=== PATIENT | female | born 1995 | race Hispanic/Latino ===

== ENCOUNTER 2021-03-21 11:27 | Emergency (ER) | payer SELFPAY ==
[~2021-03-21] VITALS: Ht 152.4 cm; Wt 63.5 kg
[2021-03-21 11:28] VITALS: BP 122/70
== END 2021-03-21 12:21 | disposition left against medical advice (07) ==
LOC: EDH 11:27
DX: R10.2 Pelvic and perineal pain (principal); Z53.21 Procedure and treatment not carried out due to patient leaving prior to being seen by health care provider